=== PATIENT | female | born 1970 | race Caucasian/White ===

== ENCOUNTER 2019-04-18 07:37 | Emergency (ER) | payer OTHER ==
[~2019-04-18] VITALS: Ht 160 cm; Wt 136.1 kg
[~2019-04-18 07:37] MED LIST: ACEDIPPM PO; NAPR500 PO; Percocet 5-3251 EACH PO; Zantac150 MG PO
[2019-04-18] MEDS ORDERED: KETO10 PO (08:44)
[2019-04-18] MEDS ORDERED: Robaxin-750750 MG PO (08:44)
== END 2019-04-18 09:27 | disposition home or self-care (01) ==
LOC: ER 07:37
DX: G57.01 Lesion of sciatic nerve, right lower limb (principal); F17.210 Nicotine dependence, cigarettes, uncomplicated
CPT/HCPCS: 96372; 99283-25; J1885

== ENCOUNTER 2022-09-09 13:44 | Emergency (ER) | payer OTHER ==
[~2022-09-09] VITALS: Ht 160 cm; Wt 147.4 kg
[~2022-09-09 13:44] MED LIST changes: +KETO10 PO; +Robaxin-750750 MG PO
[2022-09-09 14:29] LABS: BASOPHILS ABSOLUTE AUTO 0.04 K/mm3 (0.00-0.23); BASOPHILS PERCENT AUTO 0 % (0-2); EOSINOPHILS ABSOLUTE AUTO 0.22 K/mm3 (0.00-0.68); EOSINOPHILS PERCENT AUTO 2 % (0-6); Hematocrit 43.3 % (33.0-51.0); Hemoglobin 14.4 g/dL (11.5-16.0); IMMATURE GRAN ABSOLUTE AUTO 0.08 K/mm3 (0.00-0.10); IMMATURE GRAN PERCENT AUTO 1 % (0-1); LYMPHOCYTES ABSOLUTE AUTO 1.95 K/mm3 (0.84-5.20); LYMPHOCYTES PERCENT AUTO 15 % (21-46); MONOCYTES PERCENT AUTO 10 % (4-13); Mean Corpuscular HGB Conc 33.3 g/dL (31.5-36.5); Mean Corpuscular Volume 90 fL (80-100); Mean Platelet Volume 9.6 fL (9.1-12.4); NEUTROPHILS ABSOLUTE AUTO 9.17 K/mm3 (1.96-9.15); NEUTROPHILS PERCENT AUTO 73 % (41-73); Platelet Count 355 K/mm3 (150-400); White Blood Cell Count 12.66 K/mm3 (4.00-11.30)
[2022-09-09 14:46] LABS: Albumin, Blood 3.2 g/dL (3.4-5.0); Albumin/Globulin Ratio 0.7 (0.8-1.8); Bilirubin, Total 0.3 mg/dL (0.1-1.0); Bun/Creatinine Ratio 23.6 (12.0-20.0); Creatinine, Blood 0.64 mg/dL (0.40-1.00); Globulin, Blood 4.4 g/dL (2.2-4.0); Total Protein, Blood 7.6 g/dL (6.4-8.2)
[2022-09-09 15:44] LABS: Source, Urine Clean Catch
[2022-09-09] MEDS ORDERED: TRAZ50 PO (15:48)
[2022-09-09 15:56] LABS: Appearance, Urine Clear (Clear); Bilirubin, Urine Neg (Neg); Blood, Urine Neg (Neg); Glucose Qualitative, Urine Neg (Neg); Ketones, Urine Neg (Neg); Leukocyte Esterase, Urine Neg (Neg); Nitrite, Urine Neg (Neg); Protein, Urine Neg (Neg); Urobilinogen, Urine NORM (Normal)
[2022-09-09 16:05] LABS: Color, Urine Pale Yellow (P-Yellow)
[2022-09-09] MEDS ORDERED: Percocet 5-3251 EACH PO (21:20)
[2022-09-09] MEDS ORDERED: AMOCLA875 PO (21:20)
[2022-09-09 23:10] VITALS: BP 146/78
== END 2022-09-09 23:17 | disposition home or self-care (01) ==
LOC: ER 13:44
PROVIDERS: Physician Assistant
DX: N32.9 Bladder disorder, unspecified (principal); R10.9 Unspecified abdominal pain; F17.210 Nicotine dependence, cigarettes, uncomplicated; Z79.899 Other long term (current) drug therapy
CPT/HCPCS: 74177; 80053; 81003; 83690; 85025; 96365-59; 96367; 99284-25; A9270; J0696; Q9967

== ENCOUNTER 2022-09-10 10:46 | Emergency (ER) | payer OTHER ==
[~2022-09-10] VITALS: Ht 160 cm; Wt 147.4 kg
[~2022-09-10 10:46] MED LIST changes: +AMOCLA875 PO; +TRAZ50 PO
[2022-09-10 11:52] LABS: BASOPHILS ABSOLUTE AUTO 0.03 K/mm3 (0.00-0.23); BASOPHILS PERCENT AUTO 0 % (0-2); EOSINOPHILS ABSOLUTE AUTO 0.24 K/mm3 (0.00-0.68); EOSINOPHILS PERCENT AUTO 2 % (0-6); Hematocrit 42.8 % (33.0-51.0); Hemoglobin 14.4 g/dL (11.5-16.0); IMMATURE GRAN ABSOLUTE AUTO 0.05 K/mm3 (0.00-0.10); IMMATURE GRAN PERCENT AUTO 0 % (0-1); LYMPHOCYTES ABSOLUTE AUTO 1.43 K/mm3 (0.84-5.20); LYMPHOCYTES PERCENT AUTO 13 % (21-46); MONOCYTES ABSOLUTE AUTO 1.01 K/mm3 (0.16-1.47); MONOCYTES PERCENT AUTO 9 % (4-13); Mean Corpuscular HGB 30.1 pg (26.0-34.0); Mean Corpuscular HGB Conc 33.6 g/dL (31.5-36.5); Mean Corpuscular Volume 90 fL (80-100); Mean Platelet Volume 9.5 fL (9.1-12.4); NEUTROPHILS ABSOLUTE AUTO 8.62 K/mm3 (1.96-9.15); NEUTROPHILS PERCENT AUTO 76 % (41-73); Platelet Count 356 K/mm3 (150-400); RDW Coefficient Variation 12.2 % (11.7-14.2); RDW Standard Deviation 40.5 fL (35.1-46.3); Red Blood Cell Count 4.78 M/mm3 (3.80-5.20); White Blood Cell Count 11.38 K/mm3 (4.00-11.30)
[2022-09-10 12:17] LABS: Albumin, Blood 3.1 g/dL (3.4-5.0); Albumin/Globulin Ratio 0.7 (0.8-1.8); Bilirubin, Total 0.5 mg/dL (0.1-1.0); Bun/Creatinine Ratio 16.8 (12.0-20.0); Calcium, Blood 8.8 mg/dL (8.5-10.1); Creatinine, Blood 0.65 mg/dL (0.40-1.00); Globulin, Blood 4.2 g/dL (2.2-4.0); Potassium, Blood 3.9 mmol/L (3.5-5.5); Total Protein, Blood 7.3 g/dL (6.4-8.2)
[2022-09-10 12:55] LABS: Source, Urine Straight Cath
[2022-09-10 12:58] LABS: Appearance, Urine Clear (Clear); Bilirubin, Urine Neg (Neg); Blood, Urine 2+ (Neg); Color, Urine Yellow (P-Yellow); Glucose Qualitative, Urine Neg (Neg); Ketones, Urine Neg (Neg); Leukocyte Esterase, Urine 2+ (Neg); Nitrite, Urine Neg (Neg); Protein, Urine Neg (Neg); Specific Gravity, Urine 1.005 (1.003-1.022); Urobilinogen, Urine NORM (Normal)
[2022-09-10 13:24] LABS: Bacteria Not Seen /hpf; Squamous Epithelial Cells Mod /hpf (Few)
[2022-09-10 15:28] VITALS: BP 139/95
== END 2022-09-10 16:05 | disposition home or self-care (01) ==
LOC: ER 10:46
PROVIDERS: Emergency Medicine; Student in an Organized Health Care Education/Training Program
DX: N30.10 Interstitial cystitis (chronic) without hematuria (principal); F17.210 Nicotine dependence, cigarettes, uncomplicated
CPT/HCPCS: 74177; 80053; 81001; 85025; 96374; 96375; 99283-25; J1170; J2405; Q9967

== ENCOUNTER 2022-11-29 06:14 | Day surgery (SDC) | payer OTHER ==
[~2022-11-29] VITALS: Ht 160 cm; Wt 155.3 kg
[~2022-11-29 06:14] MED LIST changes: +CELE100 PO; +PHENA200 PO
[2022-11-29 06:53] VITALS: BP 144/94
--- NOTE | 2022-11-29 07:15 | NUR ---
Ambulatory in Day Surgery. History, Chart, Medications and Allergies reviewed before start of procedure. Patient states colon prep results clear with some sed. Patient confirms NPO status and agrees with scheduled surgery. Pre-Op teaching done. Pt verbalizes understanding. Patient States Post-Procedure ride home has been arranged.
--- NOTE | 2022-11-29 07:22 | NUR ---
11/29/22 [address] CHUA; SEE ANESTHESIA RECORDS.
[2022-11-29 08:16] VITALS: BP 123/74
[2022-11-29 08:18] VITALS: BP 126/72
== END 2022-11-29 08:55 | disposition home or self-care (01) ==
LOC: ORSCMMR 06:14 → ORD 07:30 → ORSCMMR 08:55
PROVIDERS: Surgery
PROC: 0DBN8ZX Excision of Sigmoid Colon, Via Natural or Artificial Opening Endoscopic, Diagnostic (ICD-10-PCS; principal; 2022-11-29 07:30)
DX: K57.20 Diverticulitis of large intestine with perforation and abscess without bleeding (principal); K63.5 Polyp of colon; Z87.891 Personal history of nicotine dependence; Z79.899 Other long term (current) drug therapy; Z68.44 Body mass index [BMI] 60.0-69.9, adult
CPT/HCPCS: 88305; J2250; J2704; J7120

== ENCOUNTER 2023-06-13 19:09 | Inpatient (IN) | payer OTHER ==
[~2023-06-13] VITALS: Ht 160 cm; Wt 147.3 kg
[2023-06-13 19:41] LABS: BASOPHILS ABSOLUTE AUTO 0.03 K/mm3 (0.00-0.23); BASOPHILS PERCENT AUTO 0 % (0-2); EOSINOPHILS ABSOLUTE AUTO 0.08 K/mm3 (0.00-0.68); EOSINOPHILS PERCENT AUTO 1 % (0-6); Hematocrit 44.4 % (33.0-51.0); Hemoglobin 14.5 g/dL (11.5-16.0); IMMATURE GRAN ABSOLUTE AUTO 0.06 K/mm3 (0.00-0.10); IMMATURE GRAN PERCENT AUTO 1 % (0-1); LYMPHOCYTES ABSOLUTE AUTO 1.91 K/mm3 (0.84-5.20); LYMPHOCYTES PERCENT AUTO 17 % (21-46); MONOCYTES PERCENT AUTO 10 % (4-13); Mean Corpuscular HGB 28.9 pg (26.0-34.0); Mean Corpuscular HGB Conc 32.7 g/dL (31.5-36.5); Mean Corpuscular Volume 88 fL (80-100); Mean Platelet Volume 9.3 fL (9.1-12.4); NEUTROPHILS PERCENT AUTO 71 % (41-73); Platelet Count 382 K/mm3 (150-400); RDW Coefficient Variation 12.3 % (11.7-14.2); RDW Standard Deviation 40.2 fL (35.1-46.3); Red Blood Cell Count 5.02 M/mm3 (3.80-5.20); White Blood Cell Count 11.08 K/mm3 (4.00-11.30)
[2023-06-13 19:55] LABS: Source, Urine Clean Catch
[2023-06-13 20:04] LABS: Albumin, Blood 3.1 g/dL (3.4-5.0); Albumin/Globulin Ratio 0.6 (0.8-1.8); Bilirubin, Total 0.8 mg/dL (0.1-1.0); Bun/Creatinine Ratio 12.4 (12.0-20.0); Calcium, Blood 9.6 mg/dL (8.5-10.1); Creatinine, Blood 0.72 mg/dL (0.40-1.00); Globulin, Blood 4.9 g/dL (2.2-4.0); Potassium, Blood 3.9 mmol/L (3.5-5.5)
[2023-06-13 20:04] LABS: Appearance, Urine Clear (Clear); Bilirubin, Urine Neg (Neg); Blood, Urine Neg (Neg); Color, Urine Yellow (P-Yellow); Glucose Qualitative, Urine Neg (Neg); Ketones, Urine 1+ (Neg); Leukocyte Esterase, Urine 2+ (Neg); Nitrite, Urine Neg (Neg); Protein, Urine Neg (Neg); Specific Gravity, Urine 1.015 (1.003-1.022); Urobilinogen, Urine NORM (Normal)
[2023-06-13 20:12] LABS: Bacteria Few /hpf; Red Blood Cells, Urine Not Seen /hpf (0-2); Squamous Epithelial Cells Few /hpf (Few)
[2023-06-13] MEDS ORDERED: Adipex-P37.5 M1 PO (22:05)
[2023-06-13] MEDS ORDERED: NS 1,000 ML IV SCH (22:05)
[2023-06-13] MEDS ORDERED: FentaNYL Citrate 50 MCG/ML 2 ML Injection IV ONE (22:05)
[2023-06-13] MEDS ORDERED: Acetaminophen 325 MG TABLET PO PRN (23:35)
[2023-06-13] MEDS ORDERED: FentaNYL Citrate 50 MCG/ML 2 ML Injection IV PRN (23:35)
[2023-06-13] MEDS ORDERED: NS 1,000 ML IV ONE (23:35)
[2023-06-13] MEDS ORDERED: Ondansetron HCl 2 MG / ML 2ML Vial IV PRN (23:35)
[2023-06-14 00:17] LABS: International Normalized Ratio 1.04; Prothrombin Time Results 11.1 Sec (9.7-11.5)
[2023-06-14] MEDS ORDERED: NS 1,000 ML IV ONE (01:06)
--- NOTE | 2023-06-14 01:27 | NUR ---
NEW ADMIT PATIENT ADMITTED TO ROOM 339 FROM THE ER. PATIENT ARRIVED TO FLOOR VIA GURNEY AND 1P TRANSFER. PATIENT ABLE TO SELF TRANSFER FROM [facility] TO HOSPITAL BED. PATIENT ARRIVED WITH IV FLUIDS AND ANTIBIOTIC ZOSYN RUNNING. PATIENT ARRIVED WITH 2 PERSONAL BELONGINGS BAGS AND A PURSE. THIS RN TO ASSUME CARE OF PATIENT.
[2023-06-14 01:30] VITALS: BP 159/85
--- NOTE | 2023-06-14 05:09 | NUR ---
SHIFT SUMMARY. PATIENT IS AOX4. PATIENT ADMITTED WITH DIVERTICULITIS WITH ABSCESS. PATIENT C/O PAIN; PAIN ASSESSED AND MEDICATED PER EMAR. PATIENT RESTING WELL WITH RESPIRATIONS EQUAL AND UNLABORED AT THIS TIME. PATIENT CALLS AND ABLE TO MAKE HER NEEDS KNOWN. PATIENT EDUCATED ON NO SMOKING POLICY. PATIENT IS INDEPENDENT IN ROOM WITH STEADY GAIT. BED IS LOCKED IN THE LOWEST POSITION WITH CALL LIGHT IN REACH. NO S/S OF DISTRESS NOTED AT THIS TIME. CARE IS ONGOING.
[2023-06-14 05:49] LABS: BASOPHILS ABSOLUTE AUTO 0.02 K/mm3 (0.00-0.23); BASOPHILS PERCENT AUTO 0 % (0-2); EOSINOPHILS ABSOLUTE AUTO 0.15 K/mm3 (0.00-0.68); EOSINOPHILS PERCENT AUTO 2 % (0-6); Hematocrit 39.1 % (33.0-51.0); Hemoglobin 12.8 g/dL (11.5-16.0); IMMATURE GRAN ABSOLUTE AUTO 0.06 K/mm3 (0.00-0.10); IMMATURE GRAN PERCENT AUTO 1 % (0-1); LYMPHOCYTES ABSOLUTE AUTO 1.58 K/mm3 (0.84-5.20); LYMPHOCYTES PERCENT AUTO 17 % (21-46); MONOCYTES ABSOLUTE AUTO 0.99 K/mm3 (0.16-1.47); MONOCYTES PERCENT AUTO 11 % (4-13); Mean Corpuscular HGB Conc 32.7 g/dL (31.5-36.5); Mean Corpuscular Volume 89 fL (80-100); Mean Platelet Volume 9.4 fL (9.1-12.4); NEUTROPHILS ABSOLUTE AUTO 6.49 K/mm3 (1.96-9.15); NEUTROPHILS PERCENT AUTO 70 % (41-73); Platelet Count 326 K/mm3 (150-400); RDW Coefficient Variation 12.3 % (11.7-14.2); RDW Standard Deviation 40.2 fL (35.1-46.3); Red Blood Cell Count 4.41 M/mm3 (3.80-5.20); White Blood Cell Count 9.29 K/mm3 (4.00-11.30)
[2023-06-14] MEDS ORDERED: Piperacillin/Tazobactam Sod 4.5 GM in NS 100 ML IV SCH ×2 (06:00)
[2023-06-14 06:24] LABS: Albumin, Blood 2.7 g/dL (3.4-5.0); Albumin/Globulin Ratio 0.7 (0.8-1.8); Bun/Creatinine Ratio 10.4 (12.0-20.0); Calcium, Blood 8.6 mg/dL (8.5-10.1); Creatinine, Blood 0.77 mg/dL (0.40-1.00); Potassium, Blood 3.7 mmol/L (3.5-5.5); Total Protein, Blood 6.7 g/dL (6.4-8.2)
[2023-06-14 07:38] VITALS: BP 133/70
[2023-06-14] MEDS ORDERED: Misc. Tablet PO SCH (09:00)
[2023-06-14] MEDS ORDERED: OxyCODONE HCL 5 MG TAB PO STA (09:55)
[2023-06-14] MEDS ORDERED: OxyCODONE HCL 5 MG TAB PO PRN (10:00)
--- NOTE | 2023-06-14 12:12 | NUR ---
DIET VERIFICATION NOTE: DR. PAL CAME AND SAW PATIENT THIS AM FOR CONSULT. PATIENT REPORTS TO THIS RN THAT DR. PAL TOLD HER SHE CAN HAVE CL DIET. THIS RN CALLED DR. PAL TO VERIFIED DIET. RECEIVED ORDER FROM DR. PAL TO START PATIENT CL DIET NOW.
[2023-06-14 15:32] VITALS: BP 137/67
--- NOTE | 2023-06-14 17:08 | NUR ---
SHIFT SUMMARY: PATIENT A/OX4, PLEASANT AND COOPERATIVE c CARE. PATIENT DENIES CP/PRESSURE, SOB, N/V AND DIZZINESS. PATIENT ON TELE, SR HR IN THE HIGH 70'S BPM. PATIENT PAIN TO LOWER ABDOMEN/GROIN/BACK, WELL CONTROLLED c EMAR PAIN MEDS. PATIENT ON CL DIET, TOLERATING WELL, DENIES N/V OR ABDOMINAL DISCOMFORT AFTER MEALS. PATIENT CONTINENCE OF BLADDER, AMBULATES TO BATHROOM/BACK IN BED INDEPENDENTLY. PATIENT RECEIVED SCHEDULED MEDS PER EMAR. VITAL SIGNS REVIEWED. PATIENT HAS NO COMPLAINTS OR DENIES NEW CONCERNED, WHEN ASKED T/O SHIFT. CALL LIGHT IN RAECH.
[2023-06-14 19:16] VITALS: BP 142/73
[2023-06-14] MEDS ORDERED: TraZODone HCl 50 MG Tab PO SCH (21:00)
[2023-06-15 03:04] VITALS: BP 146/81
--- NOTE | 2023-06-15 04:31 | NUR ---
SHIFT SUMMARY. PATIENT IS AOX4. PATIENT ADMITTED WITH DIVERTICULITIS OF INTESTINE WITH ABSCESS. PATIENT REPORTS DECREASE IN PAIN LEVEL AND BETTER PAIN CONTROL. PATIENT CALLS APPROPRIATELY AND IS ABLE TO MAKE HER NEEDS KNOWN. PATIENT UP INDEPENDENTLY IN ROOM. PATIENT MEDICATED FOR PAIN WITH PO PAIN MEDS PER EMAR. BED IS LOCKED IN THE LOWEST POSITION WITH CALL LIGHT IN REACH. NO S/S OF DISTRESS NOTED. CARE IS ONGOING.
[2023-06-15 05:30] LABS: BASOPHILS ABSOLUTE AUTO 0.02 K/mm3 (0.00-0.23); BASOPHILS PERCENT AUTO 0 % (0-2); EOSINOPHILS ABSOLUTE AUTO 0.13 K/mm3 (0.00-0.68); EOSINOPHILS PERCENT AUTO 1 % (0-6); Hematocrit 39.5 % (33.0-51.0); Hemoglobin 12.9 g/dL (11.5-16.0); IMMATURE GRAN ABSOLUTE AUTO 0.08 K/mm3 (0.00-0.10); IMMATURE GRAN PERCENT AUTO 1 % (0-1); LYMPHOCYTES ABSOLUTE AUTO 1.53 K/mm3 (0.84-5.20); LYMPHOCYTES PERCENT AUTO 15 % (21-46); MONOCYTES ABSOLUTE AUTO 1.07 K/mm3 (0.16-1.47); MONOCYTES PERCENT AUTO 10 % (4-13); Mean Corpuscular HGB 29.3 pg (26.0-34.0); Mean Corpuscular HGB Conc 32.7 g/dL (31.5-36.5); Mean Corpuscular Volume 90 fL (80-100); Mean Platelet Volume 9.8 fL (9.1-12.4); NEUTROPHILS ABSOLUTE AUTO 7.61 K/mm3 (1.96-9.15); NEUTROPHILS PERCENT AUTO 73 % (41-73); Platelet Count 330 K/mm3 (150-400); RDW Coefficient Variation 12.3 % (11.7-14.2); RDW Standard Deviation 40.6 fL (35.1-46.3); Red Blood Cell Count 4.41 M/mm3 (3.80-5.20); White Blood Cell Count 10.44 K/mm3 (4.00-11.30)
[2023-06-15 05:54] LABS: Bun/Creatinine Ratio 6.5 (12.0-20.0); Calcium, Blood 8.7 mg/dL (8.5-10.1); Creatinine, Blood 0.77 mg/dL (0.40-1.00); Potassium, Blood 3.9 mmol/L (3.5-5.5)
[2023-06-15] MEDS ORDERED: Sennosides 8.6 MG Tab PO PRN (06:05)
[2023-06-15] MEDS ORDERED: Docusate Sodium 100 MG Cap PO PRN (06:05)
[2023-06-15 07:35] VITALS: BP 129/63
[2023-06-15] MEDS ORDERED: Lactobacil 2-S.Thermo-Bifido 1 1 Cap PO SCH (09:00)
[2023-06-15] MEDS ORDERED: TraMADol HCl 50 MG Tab PO PRN (09:40)
[2023-06-15 15:24] VITALS: BP 131/72
--- NOTE | 2023-06-15 16:31 | NUR ---
SHIFT SUMMARY: PATIENT STARTED ON ULTRAM PO MED AT 1439, REPORTS NOT TOLERATING WELL, PER PATIENT "IT MAKES ME NAUSEOUS." OFFERED NAUSEA MED (ZOLFRAN) PER ORDER, BUT DECLINE. PER PATIENT "I WILL WAIT WHEN MY DAUGHTER LEFT AND MAYBE I WILL CONSIDER LATER ON." PATIENT RESTING IN BED ON/OFF T/O SHIFT, A/OX4, PLEASANT AND COOPERATIVE c CARE. PATIENT ON FL DIET, TOLERATING WELL, CONTINENCE OF BLADDER AND AMBULATES TO BATHROOM/BACK IN BED INDEPENDENTLY. PATIENT HAS NO BM THIS SHIFT. PATIENT ON TELE, SR HR IN THE HIGH 60'S BPM, DENIES CP/PRESSURE, SOB AND DIZZINESS. SCD'S TO BLE'S IN PLACED. VITAL SIGNS REVIEWED. CALL LIGHT IN REACH.
[2023-06-15 19:07] VITALS: BP 129/65
[2023-06-16] MEDS ORDERED: NS 500 ML IV ONE (00:07)
[2023-06-16] MEDS ORDERED: NS 500 ML IV SCH (00:45)
[2023-06-16 04:04] VITALS: BP 133/86
--- NOTE | 2023-06-16 05:09 | NUR ---
Patient alert and oriented, VSS, resting comfortably in bed majority of night. Patient tolerating IV antibiotics to right AC PIV. Patient eagerly anticipating discharge home today. PRN oxicodone given x2 per patient complaint of pain.
[2023-06-16 07:18] VITALS: BP 142/76
[2023-06-16] MEDS ORDERED: VISBIOME 112.51 EACH PO (12:43)
[2023-06-16] MEDS ORDERED: AMOCLA875 PO (12:45)
--- NOTE | 2023-06-16 15:19 | NUR ---
DISCHARGE SUMMARY PATIENT WITH NO ACUTE EVENTS DURING SHIFT. SHE IS MEDICATED FOR PAIN PER EMAR AND STATES PAIN IS DECREASING. PATIENT MEDICATION AND EDUCATION PACKET PRINTED AND REVIEWD WITH PATIENT. SHE IS UP INDEPENDENT IN ROOM. DISCHARGE PACKET SIGNED. ALL QUESTIONS ANSWERED. PATIENT LEFT UNIT VIA TRANSPORT CHAIR AT 1445 WITH [facility] VIA PRIVATE VEHICLE.
== END 2023-06-16 14:59 | disposition home or self-care (01) | DRG 391 ==
LOC: ER 19:09 → MEDS 19:10
PROVIDERS: Emergency Medicine; Student in an Organized Health Care Education/Training Program; ADMIT Internal Medicine
DX: K57.20 Diverticulitis of large intestine with perforation and abscess without bleeding (principal); K65.1 Peritoneal abscess; Z68.43 Body mass index [BMI] 50.0-59.9, adult; G47.00 Insomnia, unspecified; F17.210 Nicotine dependence, cigarettes, uncomplicated; E66.01 Morbid (severe) obesity due to excess calories; Z79.899 Other long term (current) drug therapy; Z98.890 Other specified postprocedural states
CPT/HCPCS: 36415; 74177; 80048; 80053; 81001; 83690; 83880; 85025; 85610; 87086; 96361; 96374-59; 99285-25; A9270; J2543; J3010; J7030; J7040; Q9967